=== PATIENT | male | born 1950 | race Caucasian/White ===

== ENCOUNTER → 2017-12-01 | Outpatient (CLI) | payer OTHER | LOC: NUC 08:36 | DX: E55.9 Vitamin D deficiency, unspecified (principal) ==

== ENCOUNTER 2018-10-11 05:27 | Day surgery (SDC) | payer OTHER ==
[~2018-10-11] VITALS: Ht 167.6 cm; Wt 75.7 kg
--- NOTE | ~2018-10-11 | EKG ---
[address] [address] ELECTROCARDIOGRAM REPORT Name: FELIPA SAUER Room #: [address] [place] [address]..#: [id number] Admission: 10/11/18 Attend Phys: Robert Bautista Discharge: Date of : 54 Report #: [id number] THIS REPORT FOR: //name// [facility] Test Date: 2018-10-11 Test Time: 09:02:17 Pat Name: FELIPA SAUER Department: Room: 150 Gender: M [employer]: [place] : 1950 Requested By: Robert Carpio Order Number: [id number] MD: Ryan Youngblood Measurements Intervals [place] Rate: 72 P: 12 NC: 191 QRS: -5 QRSD: 95 T: 12 QT: 391 QTc: 428 Interpretive Statements Sinus rhythm No previous ECG available for comparison Electronically Signed On 10-11-2018 11:14:54 [employer] by Ryan Youngblood [email or web address] <ELECTRONICALLY SIGNED> By: Ryan Youngblood MD 10/11/18 1114 0902 1 Ryan Youngblood MD /JOHNNY
[~2018-10-11 05:27] MED LIST: ASPIR 8181 MG PO; CENTRUM SILVER1 EAC2 PO; ESCITALOPRAM OX20 MG PO; JARDIANCE25 MG PO; LANTUS SOL100 UNIT/1 SUBQ; LIPITOR 20 MG T20 M1 PO; METFORMIN HCL1000 MG PO; OCUVITE SOFTGE1 EAC1 PO; TRULICITY1.5 MG/0.5 SUBQ
[2018-10-11 08:54] LABS: HEMATOCRIT 39.5 % (42.0-52.0); HEMOGLOBIN 12.9 gm/dL (14.0-18.0)
[2018-10-11 09:17] VITALS: BP 120/73
[2018-10-11] MEDS ORDERED: ONDANSETRON HCL4 M2 PO (12:21)
[2018-10-11] MEDS ORDERED: NORCO 5-325 TA1 EACH PO (12:21)
[2018-10-11 12:41] VITALS: BP 120/73
== END 2018-10-11 13:20 | disposition home or self-care (01) ==
LOC: TBA 05:27 → OR 05:27
PROVIDERS: Surgery
DX: K40.30 Unilateral inguinal hernia, with obstruction, without gangrene, not specified as recurrent (principal); K42.0 Umbilical hernia with obstruction, without gangrene; D17.6 Benign lipomatous neoplasm of spermatic cord; E11.9 Type 2 diabetes mellitus without complications; F32.9 Major depressive disorder, single episode, unspecified; F41.9 Anxiety disorder, unspecified; Z98.890 Other specified postprocedural states; Z79.4 Long term (current) use of insulin; Z79.899 Other long term (current) drug therapy; Z79.82 Long term (current) use of aspirin
CPT/HCPCS: 50010; 50101; 50249; 50411; 50555; 51824; 52265; 52266; 53307; 53310; 54022; 54118; 54169; 55245; 56525; 56526; 62110; 62900; 70005

== ENCOUNTER → 2019-09-29 | Outpatient (CLI) | payer OTHER ==
[~2019-09-29] MED LIST changes: +NORCO 5-325 TA1 EACH PO; +ONDANSETRON HCL4 M2 PO
--- NOTE | 2019-10-03 18:06 | PATH ---
[facility] [address] [place] [address] PATHOLOGY RPT PROCEDURE Name: ANCELMO GLASS Room #: REG JANIE Kerri.#: [id number] Admission: 09/29/19 Date of : 54 Discharge: Report #: [id number] Path Case #: [id number] [facility] Accession Number: [id number] . 01 Material submitted: . duodenum - BIOPSY OF DUODENAL TO R/O SPRUE . 01 Clinical history: . Preop DX: Anemia Postop DX: Esophagitis, duodenitis, hiatal hernia r/o sprue . 02 Diagnosis: Small bowel mucosa, duodenum rule out sprue, endoscopic biopsy: - No significant diagnostic abnormalities present. - Negative for villous blunting or increase in intraepithelial lymphocytes. (IUV:yeast cake cutter; 10/03/2019) MBR 10/03/2019 1441 Local . 02 Electronically signed: . Veronica Nation MD, Pathologist NPI- [id number] . 01 Gross description: . Received in formalin labeled "Ancelmo Glass, Bx of duodenal tissue to r/o esteban," are four segments of pale patel soft tissue measuring 0.6 x 0.6 x 0.2 cm in aggregate dimensions and measuring 0.3 cm each in maximum dimension. The specimen is submitted entirely in cassette A1. (DAC; 10/02/2019) XDC/XDC 10/03/2019 1439 Local . 02 Pathologist provided ICD-10: K20.9, K29.80, K44.9 . 02 CPT . 854025 Specimen Comment: A courtesy copy of this report has been sent to [phone] Specimen Comment: [phone] Specimen Comment: Report sent to / DR MILLIGAN Performed at: [address] [id number] MD Juan Johnson MD Phone: [phone] Performed at: [facility] [address] [place] [address] PATHOLOGY RPT PROCEDURE Name: ANCELMO GLASS Room #: REG JANIE Scott#: [id number] Admission: 09/29/19 Date of : 54 Discharge: Report #: [id number] Path Case #: [id number] [address] [place], [place] [id number] MD Veronica Nation MD Phone: [phone]
--- NOTE | 2019-10-04 08:08 | P ---
[facility] [place] [address] PROCEDURE REPORT Name: FELIPA SAUER [id number] Admission: 09/29/19 Attend Phys: Jose Elena Discharge: Date of : 54 Report #: [id number] THIS REPORT FOR: //name// CC: Jose MILLIGAN Physician staff DATE OF SERVICE: 09/29/2019 PROCEDURE PERFORMED: Upper endoscopy with biopsies. HISTORY OF PRESENT ILLNESS: The patient is a 68-year-old male with a history of anemia, underwent a colonoscopy by myself in March of last year. A small tubular adenomatous polyp was removed, otherwise negative. He denies any obvious bright red blood per rectum or melena. No Hemoccult testing of the stools. Denies any heartburn or dysphagia. No previous history of upper endoscopy. Previously was on aspirin every day, but this has been discontinued since approximately 3 months ago. Plan is for EGD. DESCRIPTION OF PROCEDURE: The risks and benefits of the procedure were explained to the patient. Those risks including but not limited to bleeding, perforation and the risk of sedation. He understood these risks and gave informed consent. Sedation was given using propofol per anesthesia. Next, using a standard Olympus upper endoscope, the scope was placed in the patient's mouth and advanced under direct vision through the esophagus, stomach and into the second portion of the duodenum. The larynx was normal in appearance. The upper and mid esophagus was normal in appearance. In the distal esophagus; however, grade D severe erosive esophagitis was noted. No evidence of active bleeding. Mild narrowing was also noted at the distal esophagus. Upon entering the stomach, a small hiatal hernia was noted. Overall, the gastric mucosa was normal. The pylorus was normal and patent. In the duodenal bulb, mild duodenitis was noted. The first and second portions of the duodenum were normal. Biopsies were obtained to rule out the possibility of celiac sprue. The scope was then withdrawn and the procedure terminated. The patient tolerated the procedure well. IMPRESSION: 1. Severe grade D erosive esophagitis, although no evidence of bleeding today, could potentially cause anemia. 2. Hiatal hernia. 3. Mild duodenitis. RECOMMENDATIONS: 1. Await biopsy results. 2. Would recommend daily PPI therapy. [address] [address] PROCEDURE REPORT Name: FELIPA SAUER Room #: REG [facility] Sonia#: [id number] Admission: 09/29/19 Attend Phys: Jose Elena Discharge: Date of : 54 Report #: [id number]. We will recommend repeat upper endoscopy in approximately 4-6 weeks' time to rule out the possibility of Díaz's esophagus. Thank you for allowing me to participate in his care. <ELECTRONICALLY SIGNED> By: Jose Gaxiola MD 10/04/19 0808 1120 1142 Jose Gaxiola MD /malissa
== END | disposition home or self-care (01) ==
LOC: GI 08:22
DX: D64.9 Anemia, unspecified (principal); K22.10 Ulcer of esophagus without bleeding; K44.9 Diaphragmatic hernia without obstruction or gangrene; K29.80 Duodenitis without bleeding; K22.2 Esophageal obstruction; Z98.890 Other specified postprocedural states; Z79.82 Long term (current) use of aspirin; Z79.899 Other long term (current) drug therapy
CPT/HCPCS: 62110; 62900

== ENCOUNTER → 2020-03-29 | Outpatient (CLI) | payer OTHER ==
[~2020-03-29] VITALS: Ht 167.6 cm; Wt 78.5 kg
[~2020-03-29] MED LIST changes: +LEXAPRO 10 MG T10 MG PO; -OCUVITE SOFTGE1 EAC1 PO; +OCUVITE TABLET1 EAC1 PO
--- NOTE | 2020-03-30 10:16 | P ---
[facility] [place] [address] PROCEDURE REPORT Name: FELIPA SAUER [id number] Admission: 03/29/20 Attend Phys: Jose Elena Discharge: Date of : 54 Report #: [id number] THIS REPORT FOR: cc: JOE MILLIGAN I Physician not on staff Jose Gaxiola MD ~ CC: Jose Milligan MD Physician staff DATE OF SERVICE: 03/29/2020 PROCEDURE PERFORMED: Upper endoscopy with biopsies. HISTORY OF PRESENT ILLNESS: The patient is a 69-year-old male who underwent an upper endoscopy by myself on 09/29/2019 for history of anemia. Colonoscopy in 03/2018 had an adenomatous polyp removed, otherwise negative. At that time, the patient denied any heartburn or dysphagia. Upper endoscopy showed severe grade D erosive esophagitis. Biopsies were obtained of the duodenum, which were negative for celiac sprue. The patient was placed on daily PPI therapy and he now returns for repeat endoscopy to rule out the possibility of Díaz's esophagus. Denies any symptoms at this time. Denies any melena or bright red blood per rectum. DESCRIPTION OF PROCEDURE: The risks and benefits of the procedure were explained to the patient, those risks including but not limited to bleeding, perforation and the risk of sedation. He understood these risks and gave informed consent. Sedation was given using propofol per anesthesia. Next, using a standard Olympus upper endoscope, the scope was placed in the patient's mouth and advanced under direct vision through the esophagus, stomach and into the second portion of the duodenum. The upper and mid esophagus was normal in appearance. In the distal esophagus, no further esophagitis was noted; however, 2 small areas of possible Díaz's was noted. Biopsies were obtained. No evidence of stricture. Upon entering the stomach, a small hiatal hernia was once again noted. Overall, the gastric mucosa was normal. The pylorus was normal and patent. The duodenal bulb, first and second portion were all normal. The scope was then withdrawn and the procedure terminated. The patient tolerated the procedure well. IMPRESSION: 1. No further esophagitis noted. 2. Possible short segment Díaz's esophagus, biopsies obtained. 3. Small hiatal hernia. 4. Otherwise, normal upper endoscopy. [address] [address] PROCEDURE REPORT Name: FELIPA SAUER Room #: REG [facility] Sonia#: [id number] Admission: 03/29/20 Attend Phys: Jose Elena Discharge: Date of : 54 Report #: [id number] RECOMMENDATIONS: 1. Await biopsy results. 2. Continue long-term daily PPI therapy. Thank you for allowing me to participate in his care. <ELECTRONICALLY SIGNED> By: Jose Gaxiola MD 03/30/20 1016 1032 1223 Jose Gaxiola MD /malissa
--- NOTE | 2020-04-01 17:08 | PATH ---
[facility] [address] [place] [address] PATHOLOGY RPT PROCEDURE Name: ANCELMO GLASS Room #: REG Scott MFaustino.#: [id number] Admission: 03/29/20 Date of : 54 Discharge: Report #: [id number] Path Case #: [id number] [facility] Accession Number: [id number] . 01 Material submitted: . esophagus - BX OF DISTAL ESOPHAGUS. Modifiers: distal . 01 Clinical history: . None provided . 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 - Moderate active esophagitis within squamous mucosa. - Negative for dysplasia. (IUV:sadie; 04/01/2020) QMS 04/01/2020 1336 Local . 02 Electronically signed: . Veronica Nation MD, Pathologist NPI- [id number] . 01 Gross description: . Received in formalin labeled "Ancelmo Glass BX of distal esophagus to rule out Díaz's" is a 0.5 x 0.4 x 0.1 cm aggregate of patel-brown soft tissue fragments. The specimen is submitted entirely in A1. ([facility]; 03/31/2020) [facility] 03/31/2020 1219 Local . 02 Pathologist provided ICD-10: K20.9 . 02 CPT . 715098 Specimen Comment: A courtesy copy of this report has been sent to [phone] Specimen Comment: [phone] Specimen Comment: Report sent to / DR MILLIGAN Performed at: [address], [place] [id number] MD Juan Johnson MD Phone: [phone] Performed at: [address] [id number] MD Veronica Nation MD Phone: [phone]
== END | disposition home or self-care (01) ==
LOC: GI 02-09 10:06
DX: K20.9 Esophagitis, unspecified (principal); K44.9 Diaphragmatic hernia without obstruction or gangrene; E11.9 Type 2 diabetes mellitus without complications; E78.00 Pure hypercholesterolemia, unspecified; F32.9 Major depressive disorder, single episode, unspecified; F41.9 Anxiety disorder, unspecified; Z98.890 Other specified postprocedural states; Z79.899 Other long term (current) drug therapy; Z79.4 Long term (current) use of insulin
CPT/HCPCS: 62110; 62900

== ENCOUNTER → 2020-11-01 | Outpatient (CLI) | payer OTHER | LOC: LAB 11:24 | PROVIDERS: ATTEND Internal Medicine | DX: E11.9 Type 2 diabetes mellitus without complications (principal) ==

== ENCOUNTER → 2021-02-20 | Outpatient (CLI) | payer OTHER ==
[2021-02-20 22:06] LABS: GLYCOHEMOGLOBIN (HGB A1C) 7.3 % (4.8-5.6)
[2021-02-20 23:06] LABS: CREATININE (ALB/CR) 87.4 mg/dL (Not Estab.)
== END ==
LOC: LAB 10:00
PROVIDERS: ATTEND Internal Medicine
DX: E11.9 Type 2 diabetes mellitus without complications (principal)

== ENCOUNTER → 2021-07-15 | Outpatient (CLI) | payer OTHER ==
[2021-07-15 12:13] LABS: ABSOLUTE NEUTROPHILS 2.9 thou/uL (1.4-8.2); BASOPHILS 0.5 % (0.0-2.0); EOSINOPHILS 1.8 % (0.0-3.0); HEMATOCRIT 38.5 % (42.0-52.0); HEMOGLOBIN 12.1 gm/dL (14.0-18.0); LYMPHOCYTES 30.3 % (24.0-44.0); MCH 25.1 pg (26.0-34.0); MCHC 31.4 g/dL (28.0-37.0); MONOCYTES 9.2 % (1.0-8.0); PLATELET COUNT 250 thou/uL (150-400); POLYS 58.2 % (36.0-66.0); RBC 4.81 mil/uL (4.50-6.00); RDW 15.9 % (10.5-14.5)
[2021-07-15 12:14] LABS: URINE BILIRUBIN NEGATIVE (Negative); URINE BLOOD NEGATIVE (Negative); URINE CLARITY CLEAR; URINE COLOR YELLOW; URINE GLUCOSE-RANDOM* 3+ (Negative); URINE KETONES NEGATIVE (Negative); URINE LEUKOCYTES-REFLEX NEGATIVE (Negative); URINE NITRITE-REFLEX NEGATIVE (Negative); URINE PROTEIN (DIPSTICK) NEGATIVE (Negative); URINE UROBILINOGEN 0.2 E.U./dl (0.2-1.0)
[2021-07-15 12:48] LABS: ALBUMIN 3.8 g/dL (3.4-5.0); ANION GAP 8 mmol/L (7-16); BUN 13 mg/dL (7-18); CALCIUM 8.5 mg/dL (8.5-10.1); CHLORIDE 103 mmol/L (98-107); CHOLESTEROL 92 mg/dL (<200); CO2 29 mmol/L (21-32); CREATININE 0.9 mg/dL (0.7-1.3); GLUCOSE 177 mg/dL (74-106); HDL CHOLESTEROL 52 mg/dL (>40); LDL CHOLESTEROL 20 mg/dL (<100); SGOT 16 U/L (15-37); SGPT 24 U/L (30-65); SODIUM 140 mmol/L (136-145); TC:HDL 1.8 Ratio (Not establshd); TOTAL BILIRUBIN 0.4 mg/dL (0.2-1.0); TOTAL PROTEIN 6.6 g/dL (6.4-8.2); TRIGLYCERIDE 101 mg/dL (<150); VLDL 20 mg/dL (<40)
[2021-07-16 02:06] LABS: GLYCOHEMOGLOBIN (HGB A1C) 7.2 % (4.8-5.6)
== END ==
LOC: LAB 11:26
PROVIDERS: ATTEND Internal Medicine
DX: Z12.5 Encounter for screening for malignant neoplasm of prostate (principal); E11.9 Type 2 diabetes mellitus without complications; D64.9 Anemia, unspecified

== ENCOUNTER → 2021-10-24 | Outpatient (CLI) | payer OTHER ==
[2021-10-24 12:03] LABS: ABSOLUTE NEUTROPHILS 3.8 thou/uL (1.4-8.2); BASOPHILS 0.4 % (0.0-2.0); EOSINOPHILS 2.5 % (0.0-3.0); HEMATOCRIT 39.9 % (42.0-52.0); HEMOGLOBIN 12.3 gm/dL (14.0-18.0); LYMPHOCYTES 28.5 % (24.0-44.0); MCH 23.9 pg (26.0-34.0); MCHC 30.7 g/dL (28.0-37.0); MCV 77.7 fL (80.0-100.0); MONOCYTES 8.7 % (1.0-8.0); PLATELET COUNT 289 thou/uL (150-400); POLYS 59.9 % (36.0-66.0); RBC 5.13 mil/uL (4.50-6.00); RDW 16.2 % (10.5-14.5); WBC 6.4 thou/uL (4.0-11.0)
[2021-10-24 12:11] LABS: URINE BILIRUBIN NEGATIVE (Negative); URINE BLOOD TRACE (Negative); URINE CLARITY CLEAR; URINE COLOR YELLOW; URINE GLUCOSE-RANDOM* 3+ (Negative); URINE KETONES NEGATIVE (Negative); URINE LEUKOCYTES-REFLEX NEGATIVE (Negative); URINE NITRITE-REFLEX NEGATIVE (Negative); URINE PROTEIN (DIPSTICK) NEGATIVE (Negative); URINE SPECIFIC GRAVITY >= 1.030 (1.005-1.035); URINE UROBILINOGEN 0.2 E.U./dl (0.2-1.0)
[2021-10-24 12:45] LABS: ALBUMIN 3.9 g/dL (3.4-5.0); ANION GAP 9 mmol/L (7-16); BUN 19 mg/dL (7-18); CALCIUM 9.2 mg/dL (8.5-10.1); CHLORIDE 101 mmol/L (98-107); CO2 28 mmol/L (21-32); CREATININE 0.8 mg/dL (0.7-1.3); GLUCOSE 123 mg/dL (74-106); POTASSIUM 4.3 mmol/L (3.5-5.1); SGOT 20 U/L (15-37); SGPT 27 U/L (16-63); SODIUM 138 mmol/L (136-145); TOTAL BILIRUBIN 0.3 mg/dL (0.2-1.0)
[2021-10-24 14:46] LABS: CHOLESTEROL 130 mg/dL (<200); HDL CHOLESTEROL 55 mg/dL (>40); LDL CHOLESTEROL 57 mg/dL (<100); TC:HDL 2.4 Ratio (Not establshd); TRIGLYCERIDE 91 mg/dL (<150); VLDL 18 mg/dL (<40)
[2021-10-24 14:47] LABS: SERUM ASSESSMENT Clear
[2021-10-25 00:06] LABS: GLYCOHEMOGLOBIN (HGB A1C) 7.5 % (4.8-5.6)
== END ==
LOC: LAB 10:24
PROVIDERS: ATTEND Internal Medicine
DX: Z00.00 Encounter for general adult medical examination without abnormal findings (principal); E11.9 Type 2 diabetes mellitus without complications; E78.5 Hyperlipidemia, unspecified